=== PATIENT | male | born 1965 | race Two or more races ===

== ENCOUNTER 2018-09-12 10:34 | Emergency (ER) | payer MEDICARE, MEDICAID ==
[~2018-09-12] VITALS: Ht 188 cm; Wt 102.1 kg
[2018-09-12 10:40] VITALS: BP 151/79
--- NOTE | 2018-09-12 10:40 | NUR ---
ED Nurse Note: Pt BIBA due to alcohol abuse. Per EMT pt has been drinking since last night and acting inappropriate. AAO x1, repeating same thing and not cooperating with initial assessment. resisting applying 3 leads EKG, anxious, screaming. VS was checked while pt was still agitated and noted elevated BP and HR. will repeat again when pt is more calm. Security was notified and present at room at this moment. Addendum: 09/12/18 at 1120 by [email or web address] ED Nurse Note: Pt BIBA due to alcohol abuse. Per EMT pt has been drinking since last night and acting inappropriate at home and his mom who's living together called. AAO x1 to his name only, repeating same thing and not cooperating with initial assessment. resisting applying 3 leads EKG, anxious, screaming. VS was checked while pt was still agitated and noted elevated BP and HR. will repeat again when pt is more calm. Security was notified and present at room at this moment.
--- NOTE | 2018-09-12 12:12 | NUR ---
ED Nurse Note: Pt still in bed resting. No EKG or VS monitored due to pt's incompliance. Will try prior to discharge.
--- NOTE | 2018-09-12 13:59 | Emergency Room Report ---
History of Present Illness General Chief Complaint: Alcohol Intoxication Source: Patient Present Illness HPI 53-year-old male presents ED for evaluation. Status post EtOH intoxication. Patient brought in by EMS. States he's been drinking all night. Denies any abdominal pain nausea or vomiting. Denies any drug use. Denies any chest pain shortness of breath. Patient has an ankle monitor. States he is on parole. No other aggravating relieving factors. Denies any other associated symptoms Allergies: Coded Allergies: UNABLE TO ASSESS (Unverified , 09/12/18) EToh Patient History Past Medical History: none Past Surgical History: none Pertinent Family History: none Social History: Denies: smoking, alcohol use, drug use Immunizations: UTD Reviewed Nursing Documentation: PMH: Agreed; PSxH: Agreed Nursing Documentation-PMH Past Medical History Deferred: Pt Cognitively Impaired Review of Systems All Other Systems: negative except mentioned in HPI Physical Exam Vital Signs Date Time Temp Pulse Resp B/P (MAP) Pulse Ox O2 Delivery O2 Flow Rate FiO2 09/12/18 10:23 110 20 151/79 97 Room Air 09/12/18 10:40 99 Sp02 EP Interpretation: reviewed, normal General Appearance: other - intoxicated Head: normocephalic, atraumatic Eyes: bilateral eye normal inspection, bilateral eye PERRL ENT: hearing grossly normal, normal pharynx, no angioedema, normal voice Neck: full range of motion, supple/symm/no masses Respiratory: chest non-tender, lungs clear, normal breath sounds, speaking full sentences Cardiovascular #1: regular rate, rhythm, no edema Cardiovascular #2: 2+ carotid (R), 2+ carotid (L), 2+ radial (R), 2+ radial (L) , 2+ dorsalis pedis (R), 2+ dorsalis pedis (L) Gastrointestinal: normal bowel sounds, non tender, soft, non-distended, no guarding, no rebound Rectal: deferred Genitourinary: normal inspection, no CVA tenderness Musculoskeletal: back normal, gait/station normal, normal range of motion, non- tender Neurologic: other - intoxicated Psychiatric: other - intoxicated Reflexes: 3+ bicep (R), 3+ bicep (L), 3+ tricep (R), 3+ tricep (L), 3+ knee (R) , 3+ knee (L) Skin: normal color, no rash, warm/dry, well hydrated Lymphatic: no adenopathy Medical Decision Making Diagnostic Impression: Primary Impression: Acute alcoholic intoxication Qualified Codes: F10.929 - Alcohol use, unspecified with intoxication, unspecified ER Course Hospital Course 53-year-old male presents to ED status post EtOH intoxication. Clinical course Patient placed on stretcher. Given that patient is able to provide an adequate history, I see no need to check blood work or place an IV. Patient allowed to sleep. My assessment shows no evidence of SI/HI requiring psychiatric evaluation. patient allowed to rest in now awake alert oriented x3. ambulating without difficulty. [employer] called and notified that patient is here despite on ankle monitor. Diagnosis - ETOH intoxication stable and discharged to home. Followup with PMD. Return to ED if symptoms recur or worsen Last Vital Signs Date Time Temp Pulse Resp B/P (MAP) Pulse Ox O2 Delivery O2 Flow Rate FiO2 09/12/18 10:40 79 20 151/79 97 Room Air 99 Status: improved Disposition: HOME, SELF-CARE Condition: Stable Referrals: [facility] Patient Instructions: Alcohol Intoxication Sen Rojo MD Sep 12, 2018 13:59
--- NOTE | 2018-09-12 14:39 | NUR ---
ED Nurse Note: PT ABLE TO AMBULATE DOWN HALLWAY WITH STEADY GAIT AND NO ASSISTANCE. PT READY FOR DISCHARGE. PT STATES HE WILL BE GOING TO HIS MOTHER'S HOME WHO CALLED AMBULANCE. [address] [place], [address]
[2018-09-12 14:45] VITALS: BP 136/76
--- NOTE | 2018-09-12 14:47 | NUR ---
ED Nurse Note: PT BROUGHT IN BY AMBULANCE WITHOUT SHOES. SHOES PROVIDED FOR PT. WATER, JUICE, AND SANDWICH ALSO PROVIDED TO PT. GAIT ASSESSED AND PT IS ABLE TO AMBULATE WITH STEADY GAIT WITHOUT ASSISTANCE. PT ASKED HOW HE WILL BE GETTING HOME. PT STATES HE DOES NOT KNOW. PT STATES HE WILL BE ABLE TO GET HOME VIA BUS IF TAP CARD IS PROVIDED. ADDRESS CONFIRMED AND TAP CARD PROVIDED TO PT BY P[employer]ER BAG MACHINE OPERATOR. DISCHARGE PAPERWORK EXPLAINED TO PT. PT VERBALIZES UNDERSTANDING AND DENIES ANY QUESTIONS AT THIS TIME. DISCHARGE PAPERWORK GIVEN TO PT AND ID WRISTBAND REMOVED. PT WALKED OUT OF ER WITH STEADY GAIT AND ALL BELONGINGS.
== END 2018-09-12 14:57 | disposition home or self-care (01) ==
LOC: EDBD 10:34 → EMR 11:50
DX: F10.929 Alcohol use, unspecified with intoxication, unspecified (principal)
CPT/HCPCS: 99283